=== PATIENT | male | born 1960 | race Native Hawaiian/Other Pacific Islander ===

== ENCOUNTER 2021-05-02 08:52 | Emergency (ER) | payer OTHER ==
[~2021-05-02] VITALS: Ht 182.9 cm; Wt 72.6 kg
[2021-05-02 09:23] VITALS: BP 133/93; TEMP 97.4
== END 2021-05-02 09:26 | disposition home or self-care (01) ==
LOC: ED 08:52
DX: U07.1 COVID-19 (principal)
CPT/HCPCS: 99282